=== PATIENT | male | born 1995 | race Caucasian/White ===

== ENCOUNTER 2022-05-03 17:23 | Emergency (ER) | payer OTHER ==
[2022-05-03 18:09] LABS: BASOPHIL 0.5 % (0-2); EOSINOPHIL 0.4 % (0-5); HCT 45.4 % (42.0-52.0); HGB 15.4 g/dl (13.2-18.0); LYMPHOCYTE 18.2 % (15-48); MCH 29.9 pg (25.0-31.0); MCHC 33.9 g/dL (32.0-36.0); MCV 88.2 fL (78.0-100.0); MONOCYTE 5.5 % (0-12); MPV 9.6 fL (6.0-9.5); NEUTROPHIL 74.8 % (41-80); NRBC 0; PLT 265 K/uL (150-400); RBC 5.15 M/uL (4.70-6.00); RDW 12.4 % (11.5-14.0); WBC 9.7 K/uL (4.0-10.5)
[2022-05-03 18:28] LABS: ALBUMIN 4.1 g/dL (3.4-5.0); ALKALINE PHOSHATASE 91 U/L (46-116); ALT 31 U/L (16-63); AST 23 U/L (15-37); BILIRUBIN - TOTAL 1.4 mg/dL (0.2-1.0); BUN 20 mg/dL (7-18); CHLORIDE 106 mmol/L (98-107); CO2 (BICARBONATE) 25 mmol/L (21-32); GLOBULIN (CALCULATION) 3.2 g/dL; GLUCOSE 152 mg/dL (74-106); POTASSIUM 3.6 mmol/L (3.5-5.1); TOTAL PROTEIN 7.3 g/dL (6.4-8.2)
[2022-05-03] MEDS ORDERED: NORCO 5-325 TA1 EACH PO ×2 (20:43→20:47)
== END 2022-05-03 21:02 | disposition home or self-care (01) ==
LOC: FER 17:23
PROVIDERS: Emergency Medicine
DX: S01.01XA Laceration without foreign body of scalp, initial encounter (principal); S90.811A Abrasion, right foot, initial encounter; F17.290 Nicotine dependence, other tobacco product, uncomplicated; Z23 Encounter for immunization; Z28.310 Unvaccinated for COVID-19; V13.4XXA Pedal cycle driver injured in collision with car, pick-up truck or van in traffic accident, initial encounter
CPT/HCPCS: 36415; 70450; 71250; 72125; 72128; 72131; 72170; 73030; 73610; 80053; 85025; 90471; 90715; 94010; G0480

== ENCOUNTER → 2022-05-11 | Day surgery (SDC) | payer OTHER ==
[~2022-05-11] VITALS: Ht 182.9 cm; Wt 99.8 kg
[~2022-05-11] MED LIST: NORCO 5-325 TA1 EACH PO; NORCO 5/3251 EACH PO
== END | disposition home or self-care (01) ==
LOC: FAS 06:46
DX: S42.021A Displaced fracture of shaft of right clavicle, initial encounter for closed fracture (principal); V00.148A Other scooter (nonmotorized) accident, initial encounter
CPT/HCPCS: J0690; J1100; J1170; J2250; J2405; J2704; J3010; J7120